=== PATIENT | male | born 1945 | race Caucasian/White ===

== ENCOUNTER 2022-05-03 10:45 | Emergency (ER) | payer MEDICARE, OTHER ==
[2022-05-03 11:28] VITALS: BP 116/91
[2022-05-03] MEDS ORDERED: HYDROmorphone 1 MG/ML CARPUJECT IM STA (12:08)
[2022-05-03] MEDS ORDERED: oxyCODONE 5 MG TABLET PO STA (12:08)
--- NOTE | 2022-05-03 12:12 | ED Physician Documentation ---
History of Present Illness - Stated complaint Stated Complaint: BACK [id number] - Chief complaint Chief Complaint: Back Pain - Additonal information Additional information: 76-year-old male presents emergency department for evaluation of right sided thoracic and posterior rib wall pain. He was on a stool working on his car 2 days ago when he slipped off of it falling onto his back. His rib wall did land on the stool. Since then he has had persistent pain in this area. He has taken Tylenol once as well as Aleve once. His has been alternating ice and heat to no effect. He is somewhat short of breath though no hemoptysis. No history of similar in the past. He denies striking his head. No headache or neck pain. No pain in the lower lumbar spine hips or legs. Review of Systems Constitutional: denies: Fever, Chills Cardiac: reports: Other (Posterior chest wall pain). denies: Chest pain / pressure, Palpitations Respiratory: reports: Reviewed and negative GI: reports: Reviewed and negative Musculoskeletal: reports: Back pain. denies: Extremity pain, Joint pain Neurologic: reports: Reviewed and negative PD PAST MEDICAL HISTORY - Past Medical History Past Medical History: Yes Cardiovascular: High cholesterol Respiratory: None Neuro: None Endocrine/Autoimmune: None GI: None : Benign prostate hypertrophy HEENT: None Psych: None Musculoskeletal: None Derm: None - Past Surgical History Past Surgical History: Yes Ortho: Spine surgery HEENT: Tonsil/Adenoidectomy - Present Medications Home Medications: Ambulatory Orders Medication Instructions Recorded Confirmed Simvastatin 20 mg PO DAILY 10/31/12 05/03/22 Tamsulosin [Flomax] 0.4 mg PO DAILY 05/03/22 05/03/22 oxyCODONE [Roxicodone] 5 mg PO TID PRN #20 tablet 05/03/22 - Allergies Allergies/Adverse Reactions: Allergies Allergy/AdvReac Type Severity Reaction Status Date / Time No Known Drug Allergies Allergy Verified 10/31/12 20:29 - Social History Does the pt smoke?: No Smoking Status: Never smoker Does the pt drink ETOH?: No Does the pt have substance abuse?: No - Immunizations Immunizations are current?: No Immunizations: Other immun not current - POLST Patient has POLST: No PD ED PE NORMAL - General General: Alert and oriented X 3, No acute distress, Well developed/nourished - HEENT HEENT: Atraumatic, Moist mucous membranes - Neck Neck: Supple, no meningeal sign, No adenopathy - Cardiac Cardiac: RRR, No murmur - Respiratory Respiratory: No respiratory distress, Clear bilaterally - Abdomen Abdomen: Normal bowel sounds, Soft, Non tender - Back Back: No CVA TTP, No spinal TTP (No tenderness elicited with palpation of the cervical, thoracic or lumbar spinous processes. No crepitus step-off or deformity. Tenderness elicited with palpation of the right lower lateral posterior rib wall. No obvious ecchymosis.) - Derm Derm: Warm and dry - Neuro Neuro: Alert and oriented X 3 Eye Opening: Spontaneous Motor: Obeys Commands Verbal: Oriented GCS Score: 15 Results - Vitals Vitals: Vital Signs - 24 hr 05/03/22 05/03/22 10:56 11:21 Temperature 37.0 C Heart Rate 73 65 Respiratory 18 16 Rate Blood Pressure 125/76 116/91 H O2 Saturation 98 99 Oxygen O2 Source Room air - Rads (name of study) CT chest Radiology: Final report received (No visible fracture or dislocation. 6 mm right upper lobe nodule without priors available for comparison. Recommend interval follow-up at 12 months) PD MEDICAL DECISION MAKING - ED course Complexity details: reviewed results, re-evaluated patient, considered differential, d/w patient, d/w family ED course: 76-year-old male presents emergency department for evaluation of 2 days right lower lateral posterior rib wall pain. He slipped off a stool and hit his chest on the stool. He denies any headache or neck pain. No pain was elicited with palpation of the spine. He has found increasing pain over the last 2 days despite the use of Tylenol and ibuprofen. No hemoptysis. No hypoxia. Clinically our suspicion was for contusion versus pneumothorax versus rib fracture. A CT of the chest was completed that did not show any obvious fractures or contusions. There is an incidental finding made of a 6 mm right upper lobe nodule. By Fleshman criteria this gentleman is a former smoker and should have interval CT follow-up in 12 months. I am patient was administered Dilaudid and then a dose of oxycodone here in the emergency department and is reporting improved pain relief with Full pulmonary excursion. Patient will be discharged home with recommendation for Tylenol and ibuprofen. As needed oxycodone. Follow-up with PCP. Emergent worrisome return precautions otherwise discussed. I am prescribing a short course of short-acting opioid pain medication for this patient. I have reviewed the patients [employer] and no concerning findings were noted. I have discussed that the opioids are for short term therapy only, and will not be refilled from the ED. Departure - Departure Disposition: 01 Home, Self Care Clinical Impression: Pulmonary nodule Chest wall contusion Qualifiers: Encounter type: initial encounter Laterality: right Qualified Code(s): S20.211A - Contusion of right front wall of thorax, initial encounter Condition: Stable Record reviewed to determine appropriate education?: Yes Instructions: ED Contusion Chest Wall, ED Contusion Rib Prescriptions: oxyCODONE [Roxicodone] 5 mg PO TID PRN #20 tablet PRN Reason: Pain Comments: Francia quevedo are seen today in the emergency department because 2 days ago he fell off the stool in her garage and hit the right lower posterior portion of your ribs and chest wall on the stool. Here in the emergency department we did do a CT of your chest. We do not see any fractures of your vertebral column. There are no obvious rib fractures, pulmonary contusions or pneumothorax. There was an incidental finding made of a right upper lobe pulmonary nodule. These are often benign but as you do have a history of smoking in the remote past the recommendation is for a repeat CT in 6 to 12 months. Please discuss this ED visit with Lucille Davison is soon as possible. In general I recommend that you take 600 mg of ibuprofen with food 2-3 times a day or alternate with 500 mg of Tylenol 2-3 times a day. For more severe pain I have sent a limited prescription of oxycodone to the [facility] pharmacy. In general I would expect that your pain and contusion is starting to resolve over the next 3 to 5 days. If at any point you find that your symptoms are worsening, you have a cough with bloody sputum, severe shortness of breath or chest pain then please return immediately to the ER for a second evaluation.
--- NOTE | 2022-05-03 13:01 | CT Report ---
PROCEDURE: CHEST WO INDICATIONS: right lateral posterior rib pain after fall TECHNIQUE: Noncontrast 1mm axial images were acquired from the pulmonary apices to the posterior costophrenic an gles. Axial 5 mm soft tissue kernel reconstructions were performed as well as 8 mm axial MIP and cor onal and sagittal 5 mm reformations. For radiation dose reduction, the following was used: automate d exposure control, adjustment of mA and/or kV according to patient size. COMPARISON: None FINDINGS: Image quality: Excellent. Lungs and pleura: No acute air space opacities. No pleural effusions or pneumothorax. Central and peripheral airways are patent and normal in caliber. 6 mm posterior right upper lobe nodule series 4 image 111. No priors are available for comparison. Mediastinum: Heart size is normal. No pericardial effusion. No mediastinal adenopathy by size crit eria. Thoracic aorta and central pulmonary arteries are normal in size. Esophagus is normal in meryl shahram. Mild hiatal hernia. Bones and chest wall: No suspicious bony lesions. No vertebral body compression fractures. No axil hayder or supraclavicular adenopathy by size criteria. The thyroid is normal in size and there are no incidental findings. Abdomen: Stones are present within the gallbladder without wall thickening. Visualized upper abdomin al solid organs and bowel loops appear normal in the absence of contrast. IMPRESSION: No visual fracture or dislocation. 6 mm right upper lobe nodule without priors available for comparison. Recommend interval follow-up as below. Fleischner Society criteria for SOLID lung nodule followup. Nodule size (mm) *<6 *Low-risk patient: No follow-up needed *High-risk patient: Optional CT at 12 months; if no change, no further follow-up *6-8 *Low-risk patient: Initial follow-up CT at 6-12 months, then optional CT at 18-24 months. *High-risk patient: Initial follow-up CT at CT at 6-[address] 18-24 months. *>8 single nodule *Low-risk patient: CT, PET or biopsy at 3 months. *High-risk patient: Same as for low-risk pts. *>8 multiple nodules *Low-risk patient: CT at 3-6 months, then optional CT at 18-24 months *High-risk patient: CT at 3-6 months, then CT at 18-24 months CLINICAL RECOMMENDATION STATEMENTS: In patients <35 years with an ITN detected on CT, MRI, or extrathyroidal ultrasound, the Committee re commends further evaluation with dedicated thyroid ultrasound if the nodule is "e1 cm and has no susp icious imaging features, and if the patient has normal life expectancy. In patients "e35 years with an ITN detected on CT, MRI, or extrathyroidal ultrasound, the Committee r ecommends further evaluation with dedicated thyroid ultrasound if the nodule is "e1.5 cm and has no s uspicious imaging features, and if the patient has normal life expectancy. (ACR, 2014) Reviewed by: Roxanne Quevedo MD on 05/03/2022 1:00 PM PDT Approved by: Roxanne Quevedo MD on 05/03/2022 1:00 PM PDT Station ID: [id number]
== END 2022-05-03 14:24 | disposition home or self-care (01) ==
LOC: ED 10:45
DX: S20.211A Contusion of right front wall of thorax, initial encounter (principal); R91.1 Solitary pulmonary nodule; W07.XXXA Fall from chair, initial encounter
CPT/HCPCS: 71250; 96372; 99284; A9270; J1170

== ENCOUNTER 2022-11-01 09:29 | Outpatient (CLI) | payer MEDICARE, OTHER ==
--- NOTE | 2022-11-01 10:50 | CT Report ---
PROCEDURE: CHEST WO INDICATIONS: PULMONARY NODULE TECHNIQUE: Noncontrast 1mm axial images were acquired from the pulmonary apices to the posterior costophrenic an gles. Axial 5 mm soft tissue kernel reconstructions were performed as well as 8 mm axial MIP and cor onal and sagittal 5 mm reformations. For radiation dose reduction, the following was used: automate d exposure control, adjustment of mA and/or kV according to patient size. COMPARISON: CT 05/03/2022 FINDINGS: Image quality: Excellent. Lungs and pleura: No pleural effusions. No pneumothorax. The morphology of the right upper lobe nodu le has changed. There is been interval decrease in size of the posterior solid component, with increa sed size of the anterior solid component. Largest solid nodularity measures 6 mm (4/112). Centrilobul ar and tree-in-bud nodules in the right lower lobe are similar to prior. Mediastinum: Heart size is normal. No pericardial effusions. No mediastinal adenopathy by size criter ia. No large vessel abnormality. Three-vessel coronary calcifications. Chest wall and lower neck: Thyroid is unremarkable. No axillary or supraclavicular adenopathy by size . Bones: Osteoporosis by Hounsfield units criteria. Upper Abdomen: Cholelithiasis without evidence of acute cholecystitis. IMPRESSION: The right upper lobe nodule has slightly changed in morphology, but has demonstrated decrease in grow th of the previously measured component. Given interval growth of a second nodular component, follow- up in 6-12 months should be considered. 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 Three-vessel coronary calcifications. Osteoporosis by Hounsfield units criteria. Reviewed by: Kevin Field on 11/01/2022 10:48 AM PDT Approved by: Kevin Field on 11/01/2022 10:48 AM PDT Station ID: [id number]
== END 2022-11-01 09:30 | disposition home or self-care (01) ==
LOC: DI 09:29
PROVIDERS: ATTEND Physician Assistant Medical
DX: R91.8 Other nonspecific abnormal finding of lung field (principal); I25.10 Atherosclerotic heart disease of native coronary artery without angina pectoris; M81.0 Age-related osteoporosis without current pathological fracture